=== PATIENT | male | born 1960 | race Two or more races ===

== ENCOUNTER 2023-04-10 20:18 | Emergency (ER) | payer OTHER ==
[~2023-04-10] VITALS: Ht 177.8 cm; Wt 122.5 kg
[2023-04-10 21:55] LABS: HEMATOCRIT 48.8 % (39.0-48.0); MEAN CELL VOLUME 92.4 fL (80.0-100.00); MEAN CORPUSCULAR HEMOGLOBIN 32.2 pg (27.00-32.0); MEAN CORPUSCULAR HGB CONC 34.9 g/dl (32.0-36.0); PLATELET COUNT 292 K/uL (150-450); RED BLOOD COUNT 5.29 M/uL (4.00-6.00); RED CELL DISTRIBUTION WIDTH 13.2 % (11.5-14.5)
[2023-04-10 22:13] LABS: INR 1.01; PARTIAL THROMBOPLASTIN TIME 27.9 SECONDS (22.0-34.0); PROTHROMBIN TIME 10.6 SECONDS (9.0-11.5)
[2023-04-10 22:15] LABS: CALCIUM 9.6 mg/dL (8.5-10.1); CREATININE SERUM 1.03 mg/dL (0.70-1.30); GFR 72.94; POTASSIUM 4.08 mEq/L (3.5-5.1)
[2023-04-10 23:14] LABS: URINE APPEARANCE Clear; URINE BILIRRUBIN Negative (NEGATIVE); URINE BLOOD Negative; URINE COLOR Yellow; URINE GLUCOSE Negative (NEGATIVE); URINE LEUKOCYTE Trace; URINE NITRATE Negative; URINE PROTEIN Negative (NEGATIVE); URINE UROBILINOGEN 0.2 E.U./dl
[2023-04-10 23:20] LABS: URINE BACTERIA 22.6 uL (0.0-1933); URINE WBC 10.6 uL (0.0-23.2)
[2023-04-11 00:01] LABS: URINE EPITHELIAL CELLS 1.3 uL (0.0-38.8); URINE RBC 1.8 uL (0.0-20.8)
[2023-04-11] MEDS ORDERED: NIFEDIPINE ER30 MG PO (01:21)
== END 2023-04-11 01:35 ==
LOC: ER 20:19
PROVIDERS: General Practice
DX: I10 Essential (primary) hypertension (principal)

== ENCOUNTER 2025-03-02 03:42 | Emergency (ER) | payer OTHER ==
[~2025-03-02] VITALS: Ht 177.8 cm; Wt 127.0 kg
[~2025-03-02 03:42] MED LIST: NIFEDIPINE ER30 MG PO
[2025-03-02] MEDS ORDERED: 0.9 % SODIUM CHLORIDE 1,000 ML IV STA (04:54)
[2025-03-02] MEDS ORDERED: ONDANSETRON HCL 2 MG/ML VIAL IV STA (04:54)
[2025-03-02] MEDS ORDERED: FAMOTIDINE/PF 20 MG/2 ML VIAL IV ONE (05:00)
[2025-03-02] MEDS ORDERED: ONDANSETRON HCL 2 MG/ML VIAL ONE (05:02)
[2025-03-02] MEDS ORDERED: FAMOTIDINE/PF 20 MG/2 ML VIAL ONE (05:02)
[2025-03-02 06:19] LABS: BASO % 0.4 % (0.1-1.2); EOS # 0.37 (0.04-0.54); EOS % 4.0 % (0.7-7.0); LYMPH # 0.97 (1.18-3.74); LYMPH % 10.5 % (19.3-53.1); MEAN PLATELET VOLUME 10.20 fl (9.4-12.4); MONO # 0.62 (0.24-0.82); MONO % 6.7 % (4.7-12.5); NEUT # 7.19 (1.56-6.13); NEUT % 78.0 % (34.0-71.1); RED CELL DISTRIBUTION WIDTH 12.4 % (11.6-14.4)
[2025-03-02 06:34] LABS: ALT/SGPT 72.0 U/L (12-78); AST/SGOT 47.0 U/L (15-37); BILIRUBIN TOTAL 1.18 mg/dL (0.3-1.2); BUN CREA RATIO 18.0 (7.0-25.0); CREATININE SERUM 0.93 mg/dL (0.70-1.30); GFR 81.54; GLOBULINA 3.8 G/DL (2.4-3.5); GLUCOSE FASTING 119.0 mg/dL (65-100); OSMOLALITY SERUM 288.0 MOSM/KG (275-295)
[2025-03-02 06:54] LABS: COVID-19 AG NEGATIVE (NEGATIVE)
[2025-03-02 07:44] LABS: URINE APPEARANCE Cloudy; URINE BILIRRUBIN Negative (NEGATIVE); URINE BLOOD Negative; URINE COLOR Yellow; URINE GLUCOSE Negative (NEGATIVE); URINE KETONE Negative (NEGATIVE); URINE LEUKOCYTE Trace; URINE NITRATE Negative; URINE PROTEIN Trace (NEGATIVE); URINE UROBILINOGEN 1.0 E.U./dl
[2025-03-02 07:49] LABS: URINE BACTERIA 9.5 uL (0.0-1933); URINE EPITHELIAL CELLS 3.0 uL (0.0-38.8); URINE RBC 6.4 uL (0.0-20.8); URINE WBC 12.2 uL (0.0-23.2)
[2025-03-02 07:55] LABS: URINE CAST 0.73 uL (0.0-1.40)
[2025-03-02 08:10] VITALS: BP 140/80; O2SAT 97
== END 2025-03-02 08:12 | disposition home or self-care (01) ==
LOC: ER 03:42
PROVIDERS: Physician Assistant Medical
DX: B34.9 Viral infection, unspecified (principal); Z20.822 Contact with and (suspected) exposure to COVID-19
CPT/HCPCS: 36415; 96365; 99282; J2405; J3490; J7030